=== PATIENT | male | born 1960 | race Caucasian/White ===

== ENCOUNTER 2024-10-17 05:10 | Emergency (ER) | payer OTHER, SELFPAY ==
--- NOTE | ~2024-10-17 | XR_ITS ---
CLINICAL HISTORY: pain swelling s p fall - PT UNABLE TO FAN FINGERS FOR LATERAL VIEW 3 view right hand Comparison: None Findings: Bones intact. No dislocations. There are degenerative changes of the interphalangeal joints in the base of the 1st metacarpal. No erosions. No radiopaque foreign body. The lateral views limited based on positioning. IMPRESSION: 1. No acute findings 2. Mild degenerative changes. This document has been electronically signed by: Niels Wilson MD on 10/17/2024 05:54:24
[2024-10-17 05:15] VITALS: BP 177/105; PULSE 77; RESP 16; TEMP 36.2; O2SAT 95; BMI 32.5
--- NOTE | 2024-10-17 06:28 | ED_ITS ---
HPI - Extremity Problem General Chief complaint: Extremity Injury, Upper Stated complaint: tripped injured right hand Time Seen by Provider: 10/17/24 06:26 Source: patient Mode of arrival: ambulatory Limitations: no limitations History of Present Illness ED Provider: Niraj Spann PA-C HPI Narrative: 64 yo right hand dominant male presents to the ER for evaluation of right hand and wrist pain after he fell yesterday morning. He slipped and fell on an outstretched hand and has had pain in the palm of his hand, radiating down into his wrist and forearm. He reports limited mobility of the hand & fingers due to pain. He denies any numbness or tingling. No open wounds or cuts. He reports the whole hand is slightly swollen compared to his other. MD Complaint: joint swelling and joint pain Onset (ago): day(s) Pain Consistency: constant Location: right and upper extremity Severity scale (1-10): 9 Quality: stabbing and aching Radiation: proximal Relieving factors: nothing Exacerbating factors: range of motion and palpation Associated symptoms: denies other symptoms Related Data Previous Rx's ?Medication ?Instructions ?Recorded ibuprofen 600 mg tablet 600 mg PO Q8H PRN pain #14 tabs 10/17/24 Allergies Allergy/AdvReac Type Severity Reaction Status Date / Time No Known Allergies Allergy Verified 10/17/24 05:17 [No Known Allergies*] Review of Systems Review of Systems: Yes all other systems are reviewed and are negative [facility] Social History Social History Advance Directives: No Advance Directives Information Provided: Yes Do you have a plan to hurt others: No Plan Physical Exam Vital Signs: Vital Signs: Last Vital Signs Temp 97.2 F 10/17/24 05:15 Pulse 77 10/17/24 05:15 Resp 16 10/17/24 05:15 BP 177/105 H 10/17/24 05:15 Pulse Ox 95 10/17/24 05:15 O2 Del Method Room Air 10/17/24 05:15 BMI result Body Mass Index 32.5 Appearance: Alert. Oriented X3. No acute distress. HEENT: normal inspection CVS: Normal heart rate and rhythm. Pulses normal. Respiratory: No respiratory distress. Skin: Skin warm and dry. Normal skin color. Normal skin turgor. No rashes. Extremities: Palmar aspect of the right hand with mild generalized swelling. Limited ability to make a fist, thumb to finger abduction is also limited in all digits. Mild discomfort with passive range of motion of the right wrist. No snuffbox tenderness. 2+ radial pulse. Cap refill less than 3 seconds Neuro: Oriented X 3. No motor deficit. No sensory deficit. Medications Administered Discontinued Medications Generic Name Dose Route Start Last Admin Trade Name Danilo PRN Reason Stop Dose Admin Acetaminophen 975 mg 10/17/24 06:34 10/17/24 06:54 Acetaminophen 325 Mg Tablet PO 10/17/24 06:35 975 mg ONCE ONE Administration Ibuprofen 600 mg 10/17/24 06:34 10/17/24 06:54 Ibuprofen 600 Mg Tablet PO 10/17/24 06:35 600 mg ONCE ONE Administration Medical Decision Making Medical Decision Making [facility] Narrative: 64-year-old right-hand dominant male presents to the ER for evaluation of right hand and wrist pain after he fell yesterday. Reports diffuse pain of the entire hand including all of the digits. No focal tenderness or point tenderness. There is mild swelling of the hand and fingers with limited range of motion. Neurovascularly intact. X-ray of the hand and wrist was performed that does not show any acute fractures. Given his discomfort he was placed in a velcro wrist splint for immobilization. Will refer to orthopedics for further evaluation and treatment. Encouraged to call the office on Saturday to establish an appointment. Will prescribe NSAIDs for inflammation and pain. Patient is stable for discharge home with outpatient follow-up. Differential Diagnosis Differential Diagnoses: The differential diagnosis associated with the presentation includes Hand fracture, wrist fracture, ligamentous injury, cellulitis Independent Interpretation I performed an independent interpretation of an: Plain X-Ray Interpretation: No acute fracture appreciated Radiology Impression Discussion of test interpretation with radiology: I have reviewed the radiologist's reading. Radiologist Impression: 3 view right hand Comparison: None Findings: Bones intact. No dislocations. There are degenerative changes of the interphalangeal joints in the base of the 1st metacarpal. No erosions. No radiopaque foreign body. The lateral views limited based on positioning. IMPRESSION: 1. No acute findings 2. Mild degenerative changes. Prescription Management I considered prescription management with: Pain Medication Critical Care Time Critical Care Time Critical Care Time: No Discharge Plan Discharge Clinical Impression: Sprain and strain of wrist, Contusion of hand Patient Disposition: Home, Self-Care Instructions: Wrist Injury (ED), Contusion in Adults (ED) Additional Instructions: Your x-ray today did not show any broken bones Rest your hand and wrist Recommend wrist splint for immobilization until pain is improved Use ice several times per day for the next 48 hours. Take Motrin and/or Tylenol as needed for pain. Follow up with orthopedic hand specialist. call for an appointment. Prescriptions: New ibuprofen 600 mg tablet 600 mg PO Q8H PRN (Reason: pain) Qty: 14 0RF Referrals: [facility] [Provider Group] Adam Burgos MD [Primary Care Provider] - Print Language: Nepali
[2024-10-17] MEDS: Acetaminophen 325 MG TABLET 975 MG PO (06:54)
[2024-10-17] MEDS: Ibuprofen 600 MG TABLET PO (06:54)
[2024-10-17 07:09] VITALS: BP 168/96; PULSE 77; RESP 16; TEMP 36.2; O2SAT 95
== END 2024-10-17 07:13 | disposition home or self-care (01) ==
PROVIDERS: Emergency Provider Internal Medicine; PCP Hospitalist
DX: S63.501A Unspecified sprain of right wrist, initial encounter (principal); S66.911A Strain of unspecified muscle, fascia and tendon at wrist and hand level, right hand, initial encounter; S60.221A Contusion of right hand, initial encounter; W01.0XXA Fall on same level from slipping, tripping and stumbling without subsequent striking against object, initial encounter; Y93.9 Activity, unspecified; Y92.9 Unspecified place or not applicable; Y99.9 Unspecified external cause status
CPT/HCPCS: 73110; 73130; 99283; 99284

== ENCOUNTER → 2024-10-17 05:38 | Outpatient (BNV) | payer OTHER, SELFPAY | PROVIDERS: PCP Hospitalist; Visit Provider Radiology Vascular & Interventional Radiology | DX: M79.641 Pain in right hand (principal) | CPT/HCPCS: 73130 ==

== ENCOUNTER 2024-12-01 10:05 | Observation (INO) | payer OTHER, SELFPAY ==
[2024-12-01] VITALS (9 sets, daily range): BP systolic 109–179; BP diastolic 70–109; PULSE 62–74; RESP 14–20; TEMP 36.4–37; O2SAT 95–98; BMI 26.0
--- NOTE | ~2024-12-01 | CT_ITS ---
EXAMINATION: CT ABDOMEN AND PELVIS WITH CONTRAST CLINICAL INFORMATION: Bright red blood per rectum. COMPARISON: None available. TECHNIQUE: Multidetector volumetric images were obtained from the superior aspect of the liver through the pubic symphysis following administration 85 mL of Omnipaque 350 intravenous contrast. Sagittal and coronal reformatted images were obtained on the technologist's workstation. Oral contrast: No This CT examination was performed using dose optimization techniques as appropriate, variously including the following: *Automated exposure control *Adjustment of mA and/or kV according to patient size (this includes techniques or standardized protocols for targeted exams where dose is matched to indication/reason for exam; i.e. extremities or head) *Use of iterative reconstruction technique DLP: 528 mGy centimeter. FINDINGS: Limited by patient's motion artifact. LUNG BASES: No gross acute airspace disease. LIVER, GALLBLADDER, AND BILIARY TREE: Liver measures 16 cm. There is a less than 1 cm lobulated well-defined fluid density right hepatic lobe. Main portal veins, hepatic veins and intrahepatic portion of the IVC are patent. No intrahepatic biliary ductal dilatation. No pericholecystic fluid collection or gallbladder wall thickening. Common bile duct measures 4 mm. PANCREAS: No focal mass. No peripancreatic fluid collection. No main pancreatic ductal dilatation. SPLEEN: 10 cm. Multifocal, less than 1 cm hypodensities throughout the spleen. ADRENAL GLANDS: No nodular lesions. KIDNEYS AND URETERS: No renal mass. No hydronephrosis. No gross nephrolithiasis. Exophytic cyst in the anterior midportion/lower pole right kidney. BLADDER: Fluid-filled and prominent/distended. GASTROINTESTINAL TRACT: Multiple punctate metallic structures in the region of the prostate gland. There is perirectal edema pattern. There is blake prostate edema pattern. Abundant stool within the large intestine. No pneumatosis intestinalis. No intestinal obstruction pattern. No peripheral enhancing fluid collection in the peritoneal cavity. Appendix is normal. ABDOMINAL WALL: No gross umbilical hernia. LYMPH NODES: Nonspecific prominent lymph nodes, retroperitoneum. VASCULAR: Calcified plaques throughout the abdominal aorta wall and the origin of the main renal arteries and iliac arteries. Tortuosity of the iliac arteries. The right common iliac artery diameter is 1.4 cm. The left common iliac artery diameter is 1.8 cm. PELVIC VISCERA: Metallic clips in the region of the prostate gland. OSSEOUS STRUCTURES: Multilevel thoracolumbar spondylosis more pronounced at L5-S1. [place] lesions in the right femoral neck. CT/CT abdomen pelvis w IV con IMPRESSION: Concerning the are surgical procedure in the prostate gland with associated perirectal wall edema versus inflammatory processes. Injury to the wall cannot be excluded. Nonspecific multifocal hypodense lesions in the spleen. Statistically matter present hematoma versus hamartoma among other etiologies. Fluid-filled distended bladder. Urinary lower left obstruction, mechanical versus metabolic cannot be excluded. Fleischner guidelines were followed. Electronically signed by: Santos Diaz MD 12/01/2024 02:18 PM EDT
[2024-12-01 10:31] LABS: MANUAL DIFF FLAG NO
[2024-12-01 10:34] LABS: Basophils Percent Auto 0.5 % (0-2); Eosinophils Absolute Auto 0.2 X10*3/uL (0.0-0.4); Eosinophils Percent Auto 3.3 % (0-4); Hematocrit 36.4 % (42.0-52.0); Hemoglobin 13.1 g/dl (14.0-18.0); Imm Gran Abs Auto 0.03 X10*3/uL (0.00-0.03); Imm Gran Pct Auto 0.5 % (0.0-0.4); Lymphocytes Absolute Auto 1.2 X10*3/uL (1.2-4.9); Lymphocytes Percent Auto 19.6 % (20-40); Mean Corpuscular Hemoglobin 31.7 pg (27.0-33.0); Mean Corpuscular Volume 88.1 fL (80.0-98.0); Mean Platelet Volume 9.1 fL (9.4-12.4); Monocytes Absolute Auto 0.4 X10*3/uL (0.1-1.2); Neutrophils Absolute Auto 4.2 x10*3/uL (2.0-8.3); Neutrophils Percent Auto 70.1 % (45-73); Platelet Count 136 X10*3/uL (160-400); Red Blood Count 4.13 X10*6/uL (4.60-5.80); Red Cell Distribution Width 13.3 % (11.0-16.0)
[2024-12-01 10:50] LABS: Alanine Aminotransferase 12 U/L (0-40); Albumin Level 3.9 g/dL (3.5-5.0); Alkaline Phosphatase 59 U/L (39-117); Anion Gap 10 (12-20); Aspartate Amino Transferase 22 U/L (5-37); Bilirubin Total 0.8 mg/dL (0.0-1.0); Blood Urea Nitrogen 13 mg/dL (9-16); Calcium 9.1 mg/dL (8.4-10.2); Carbon Dioxide 29 mmol/L (22-29); Chloride 108 mmol/L (96-108); Creatinine Clr Calc Pharmacy 93.7; Estimated Glomerular Filt Rate > 60; Glucose Random 125 mg/dL (60-115); Sodium 144 mmol/L (135-145); Total Protein 6.4 g/dL (6.5-8.0)
--- NOTE | 2024-12-01 11:56 | ED_ITS ---
HPI - GI Bleed General Chief complaint: GI Bleed Stated complaint: rectal bleeding Time Seen by Provider: 12/01/24 11:27 History of Present Illness HPI Narrative: Patient is a 64-year-old male with a history of prostate cancer. Been noticing bright red blood for the last 4-5 days. Patient claims that he had radiation last year for his prostate cancer now takes for radiation pills at night. There is no fever no chills. There is no chest pain has no abdominal pain there is no diaphoresis. Patient is from home. No recent colonoscopy or endoscopy. No alcohol use. Related Data Previous Rx's ?Medication ?Instructions ?Recorded ibuprofen 600 mg tablet 600 mg PO Q8H PRN pain #14 tabs 10/17/24 Allergies Allergy/AdvReac Type Severity Reaction Status Date / Time No Known Allergies Allergy Verified 12/01/24 10:17 [No Known Allergies*] Review of Systems 2 Review of Systems: Positive bright red blood per rectum PMFSH Past Medical History Attestation statement: The following information was validated with the patient. Social History Social History Advance Directives: No Advance Directives Information Provided: Yes Do you have a plan to hurt others: No Plan Physical Exam 2 Vital Signs: Vital Signs: Last Vital Signs Temp 98.6 F 12/01/24 12:53 Pulse 62 12/01/24 12:53 Resp 14 12/01/24 12:53 BP 177/101 H 12/01/24 12:53 Pulse Ox 97 12/01/24 12:53 O2 Del Method Room Air 12/01/24 12:53 BMI result Body Mass Index 26.0 Appearance: Alert. Oriented X3. No acute distress. Eyes: Pupils equal, round and reactive to light. ENT: Pharynx normal. Neck: Normal inspection. Neck supple. No lymph nodes noted. No crepitus CVS: Normal heart rate and rhythm. Pulses normal. Normal S1 and S2 Respiratory: No respiratory distress. Breath sounds normal. No Wheezing. No rales Abdomen: Soft and nontender. No rigidity. No distention. good BS x4 Skin: Skin warm and dry. Normal skin color. Normal skin turgor. Rectal exam bright red blood per rectum Extremities: No lower extremity edema. Neurovascular intact to all extremities. No Lacerations. No Rash Neuro: Oriented X 3. No motor deficit. No sensory deficit. Moving all extermities. No slurred speech Medications Administered Generic Name Dose Route Start Last Admin Trade Name Danilo PRN Reason Stop Dose Admin Sodium Chloride 1,000 mls @ 999 mls/hr 12/01/24 12:15 12/01/24 12:18 Ns IV 12/01/24 13:15 999 mls/hr .Q1H1M IGNACIO Administration Medical Decision Making Medical Decision Making [facility] Narrative: Positive bright red blood per rectum. Multiple episodes. Generalized malaise. No history of NSAID use. No history of alcohol use. On radiation pills per patient for prostate cancer. Normally goes to [facility]. Hemoglobin is 13 but there is no baseline to compare. Will admit for further monitoring. Blood pressure is okay. Not on blood thinners. Will admit for further monitoring and workup. No recent colonoscopy. Patient's case discussed with the hospitalist service. Will admit for further evaluation and monitoring. No recent NSAIDs. No alcohol. Differential Diagnosis Differential Diagnoses: The differential diagnosis associated with the presentation includes Diverticulosis, av malformation, lower GI bleed Admission/Observation Consideration of admission/observation: Escalation of care including admission/observation considered Consult Healthcare Provider Management of the patient was discussed with: Hospitalist Lab Data [facility] Lab Attestation statement: I reviewed the patient's lab results. 12/01/24 10:27 12/01/24 10:27 Labs: Lab Results 12/01/24 12/01/24 Range/Units 10:27 12:21 WBC 6.0 (4.8-10.8) X10*3/uL RBC 4.13 L (4.60-5.80) X10*6/uL Hgb 13.1 L (14.0-18.0) g/dl Hct 36.4 L (42.0-52.0) % MCV 88.1 (80.0-98.0) fL MCH 31.7 (27.0-33.0) pg MCHC 36.0 (31.0-36.0) g/dl RDW 13.3 (11.0-16.0) % Plt Count 136 L (160-400) X10*3/uL MPV 9.1 L (9.4-12.4) fL Immature Gran % (Auto) 0.5 H (0.0-0.4) % Neut % (Auto) 70.1 (45-73) % Lymph % (Auto) 19.6 L (20-40) % [place] % (Auto) 6.0 (2-11) % Eos % (Auto) 3.3 (0-4) % Baso % (Auto) 0.5 (0-2) % Lymph # (Auto) 1.2 (1.2-4.9) X10*3/uL [place] # (Auto) 0.4 (0.1-1.2) X10*3/uL Eos # (Auto) 0.2 (0.0-0.4) X10*3/uL Baso # (Auto) 0.0 (0.0-0.2) X10*3/uL Abs Immat Gran (auto) 0.03 (0.00-0.03) X10*3/uL Absolute Neuts (auto) 4.2 (2.0-8.3) x10*3/uL Absolute Nucleated RBC 0.000 (0.0-0.012) X10*3/uL Nucleated RBC % (auto) 0.0 (0.0-0.2) /100WBC Sodium 144 (135-145) mmol/L Potassium 3.0 L (3.3-5.1) mmol/L Chloride 108 (96-108) mmol/L Carbon Dioxide 29 (22-29) mmol/L Anion Gap 10 L (12-20) BUN 13 (9-16) mg/dL Creatinine 0.75 (0.5-1.4) mg/dL Estim Creat Clear Calc 93.7 Estimated GFR > 60 Random Glucose 125 H (60-115) mg/dL Calcium 9.1 (8.4-10.2) mg/dL Total Bilirubin 0.8 (0.0-1.0) mg/dL AST 22 (5-37) U/L ALT 12 (0-40) U/L Alkaline Phosphatase 59 (39-117) U/L Total Protein 6.4 L (6.5-8.0) g/dL Albumin 3.9 (3.5-5.0) g/dL Blood Type A Positive Antibody Screen NEGATIVE External Record Review No significant records here at [facility] Chronic Conditions History of prostate cancer Social Determinants Patient?s care significantly limited by Social Determinants of Health including: Problems related to primary support group Discharge Plan Discharge Clinical Impression: Lower gastrointestinal hemorrhage Patient Disposition: Admitted As Inpatient Print Language: Niuean
--- NOTE | 2024-12-01 12:04 | ECG_ITS ---
Test Reason : GIB Blood Pressure : */* mmHG Vent. Rate : 64 BPM Atrial Rate : 64 BPM P-R Int : 184 ms QRS Dur : 92 ms QT Int : 424 ms P-R-T Axes : 62 -17 12 degrees QTcB Int : 437 ms Normal sinus rhythm Nonspecific ST abnormality Abnormal ECG No previous ECGs available Referred By: Pastora Escobedo Electronically Signed By: Don Lemus
[2024-12-01] MEDS: 0.9 % Sodium Chloride 1,000 ML 999 ML IV (12:18)
--- NOTE | 2024-12-01 13:02 | PM.IMHP ---
History of Present Illness Date of Service: 12/01/24 Chief Complaint: rectal bleeding A 64 years old male with PMH of prostate CA post radiation therapy on Abiraterone, HLD who presents to the hospital with multiple episodes of bloody bowel motions with clots. The patient reports having one episode of bloody bowel motion on Saturday. the cabinet was filled with blood and clots. he felt ok otherwise so did not feel the need to get check. Had no recurrent on Sat\Sun but this morning he had large bowel motion with multiple clots and blood only with no stool and while waiting in ED he felt gurgling sensation in his stomach and moved his bowels with blood and clot only motion. No chest pain, palpitations, SOB, nausea, vomiting, diarrhea or urinary symptoms. No fever or chills. Had prev Colonoscopy last year which is not available but overall report it was ok. Hb noted to be 13.5 which is close to his baseline. PLT also low in 1`36 close to baseline. Has mild hypokalemia. Admitted for close observation and GI eval. Review of Systems Review of Systems: No fever, chills or weakness No chest pain, palpitation No shortness of breath or coughing No abdominal pain, nausea or vomiting but bloody bowel motions No urinary symptoms PMFSH Medical History Prostate cancer Social History Advance Directives: No Advance Directives Information Provided: Yes Do you have a plan to hurt others: No Plan Meds Allergies Allergy/AdvReac Type Severity Reaction Status Date / Time No Known Allergies Allergy Verified 12/01/24 10:17 [No Known Allergies*] Active Medications: Current Medications Acetaminophen (Acetaminophen 325 Mg Tablet) 650 mg PO Q6H PRN PRN Reason: Pain, Mild 1-3,fever,headache Calcium Carbonate (Calcium Carbonate 750 Mg Tab.Chew) 750 mg PO Q4H PRN PRN Reason: Heartburn Sodium Chloride (Ns) 1,000 mls @ 999 mls/hr IV .Q1H1M IGNACIO Stop: 12/01/24 13:15 Last Admin: 12/01/24 12:18 Dose: 999 mls/hr Magnesium Hydroxide (Milk Of Magnesia 30 Ml Oral.Susp) 30 ml PO DAILY PRN PRN Reason: Constipation Melatonin (Melatonin 3 Mg Tablet) 6 mg PO BEDTIME PRN PRN Reason: Insomnia Ondansetron HCl (Ondansetron Hcl 4 Mg/2 Ml Vial) 4 mg IVPUSH Q8H PRN PRN Reason: Nausea and Vomiting Sodium Chloride (0.9 % Sodium Chloride Flush 3 Ml Syringe) 3 ml IVFLUSH QSHIFT IGNACIO Physical Exam Vital Signs and Narrative: Vital Signs: Last Vital Signs Temp 98.6 F 12/01/24 12:53 Pulse 62 12/01/24 12:53 Resp 14 12/01/24 12:53 BP 177/101 H 12/01/24 12:53 Pulse Ox 97 12/01/24 12:53 O2 Del Method Room Air 12/01/24 12:53 BMI result Body Mass Index 26.0 Const: Other: Constitutional : Awake, interactive, not in distress Neck : Normal inspection, Supple Cardiovascular : RRR, no JVP, no lower extremity edema Respiratory : good bilateral air entry, no crackles, wheezes or rhonchi Gastrointestinal: soft, lax, Normal bowel sounds, Non tender Skin : Warm, Dry Neurological : Alert & oriented x3, No focal deficit Results Labs 12/01/24 10:27 12/01/24 10:27 Labs: Laboratory Results - last 24 hr 12/01/24 10:27 MCV 88.1 MCH 31.7 MCHC 36.0 RDW 13.3 Plt Count 136 L MPV 9.1 L Immature Gran % (Auto) 0.5 H Neut % (Auto) 70.1 Lymph % (Auto) 19.6 L [place] % (Auto) 6.0 Eos % (Auto) 3.3 Baso % (Auto) 0.5 Lymph # (Auto) 1.2 [place] # (Auto) 0.4 Eos # (Auto) 0.2 Baso # (Auto) 0.0 Abs Immat Gran (auto) 0.03 Absolute Neuts (auto) 4.2 Absolute Nucleated RBC 0.000 Nucleated RBC % (auto) 0.0 Anion Gap 10 L Estim Creat Clear Calc 93.7 Estimated GFR > 60 Random Glucose 125 H Calcium 9.1 Total Bilirubin 0.8 AST 22 ALT 12 Alkaline Phosphatase 59 Total Protein 6.4 L Albumin 3.9 Assessment and Plan (1) Lower gastrointestinal hemorrhage: Status: Acute (2) Acute hypokalemia: Status: Acute Plan A 64 years old male with PMH of prostate CA post radiation therapy on Abiraterone, HLD who presents to the hospital with multiple episodes of bloody bowel motions with clots. Acute BRBPR likely lower GIB, could be diverticular no evidence of acute anemia Pending CT scan monitor H&H GI consult type & screen done, transfuse as needed Acute hypokalemia replacement PO follow BMP DVT PPx SCDs Quality Stroke Does the patient have a stroke diagnosis?: No VTE Prior VTE?: No VTE Risk Level:: Medical - moderate - high VTE Device Contraindication: N/A - Device Ordered VTE Drug Contraindication: Treatment Not Indicated
[2024-12-01] MEDS: iohexoL 350 MG/ML 100 ML INFUS..BTL IV (13:32)
--- NOTE | 2024-12-01 13:41 | P.CNGI_ITS ---
History of Present Illness Data of Consult Service Date: 12/01/24 Primary Care Provider: Stefan Yuan DO HPI Reason for consult: rectla bleeding 64 years old male with PMH of prostate CA post radiation therapy on Abiraterone, HLD who i am seeing for assessment for rectal bleeding He had intermittent episodes of rectal bleeding since last Saturday with clots and bloody stools. He denies chest pain,abdominla pain, palpitations, SOB, nausea, vomiting, diarrhea or urinary symptoms. No fever or chills. Had prev Colonoscopy last year which is not available but apparently was normal. He denies taking nsaids or anti coagulants HE does have hx of XRT for prostate can about 1 year ago, which is in remission. labs: Hb noted to be 13.5 which is close to his baseline. PLT also low in 136 close to baseline, mild hypokalemia. Review of Systems 2 Review of Systems: Constitutional : No Weight loss, No Fever, No Chills ENT/Mouth : No sore throat, No Rhinorrhea Eyes: No Swelling, No Redness Cardiovascular : No Chest Pain, No SOB, No Edema Respiratory : No Cough, No Sputum, No Wheezing Gastrointestinal : see HPI Genitourinary : NO Dysuria, No Urinary Frequency, No Hematuria, No Urgency Musculoskeletal : + joint pain-trigger finger, No Myalgias, No Joint Swelling Skin : No Skin Lesions, No rash Neuro : No Weakness, No Numbness, No Dizziness, No Headache Psych : No Anxiety/Panic, No Depression Heme/Lymph: No Bruising, No Lymphadenopathy Endocrine : No Polyuria, No Polydipsia All other systems reviewed and are negative. [facility] Past Medical History Medical History Prostate cancer Family History Pertinent family history: no FH of cRC Social History Social History Patient Tobacco Use Status: Never used Tobacco Currently Displaying Signs/Symptoms of Drug Intoxication Withdrawal: No Advance Directives: No Advance Directives Information Provided: Yes Do you have a plan to hurt others: No Plan service: No Meds Allergies Allergy/AdvReac Type Severity Reaction Status Date / Time No Known Allergies Allergy Verified 12/01/24 10:17 [No Known Allergies*] Active Medications: Current Medications Acetaminophen (Acetaminophen 325 Mg Tablet) 650 mg PO Q6H PRN PRN Reason: Pain, Mild 1-3,fever,headache Calcium Carbonate (Calcium Carbonate 750 Mg Tab.Chew) 750 mg PO Q4H PRN PRN Reason: Heartburn Magnesium Hydroxide (Milk Of Magnesia 30 Ml Oral.Susp) 30 ml PO DAILY PRN PRN Reason: Constipation Melatonin (Melatonin 3 Mg Tablet) 6 mg PO BEDTIME PRN PRN Reason: Insomnia Ondansetron HCl (Ondansetron Hcl 4 Mg/2 Ml Vial) 4 mg IVPUSH Q8H PRN PRN Reason: Nausea and Vomiting Sodium Chloride (0.9 % Sodium Chloride Flush 3 Ml Syringe) 3 ml IVFLUSH QSHICHI [facility] Home Medications ?Medication ?Instructions ?Recorded ?Confirmed ?Last Taken ?Type abiraterone 250 mg tablet 1,000 mg PO BEDTIME 12/01/24 12/01/24 11/30/24 History lisinopril 10 mg tablet 10 mg PO BEDTIME 12/01/24 12/01/24 11/30/24 History pravastatin 40 mg tablet 40 mg PO BEDTIME 12/01/24 12/01/24 11/30/24 History Physical Exam 2 Vital Signs: Vital Signs: Last Vital Signs Temp 98.6 F 12/01/24 12:53 Pulse 62 12/01/24 12:53 Resp 14 12/01/24 12:53 BP 177/101 H 12/01/24 12:53 Pulse Ox 97 12/01/24 12:53 O2 Del Method Room Air 12/01/24 12:53 BMI result Body Mass Index 26.0 EXAM: GENERAL: The patient is well developed and nontoxic. VITAL SIGNS:see workflow HEENT: Nonicteric sclerae, PERRLA, EOMI. Oropharynx clear. Moist mucous membranes. Conjunctivae appear well perfused. No thyroid mass. CHEST: Chest wall is nontender. HEART: Regular rate and rhythm with ESM all over precordium, 3/6 consistent with LUNGS: Clear to auscultation bilaterally. ABDOMEN: Soft, positive bowel sounds, nontender, no organomegaly.no flank tenderness SKIN: No rash, no excessive bruising, petechiae, or purpura. NEUROLOGIC: Cranial nerves II-XII intact without motor/sensory deficit. Psych: normal affect contracture right hand Results Labs 12/02/24 05:47 12/02/24 05:47 Labs: Short CBC 12/01/24 Range/Units 10:27 WBC 6.0 (4.8-10.8) X10*3/uL Hgb 13.1 L (14.0-18.0) g/dl Hct 36.4 L (42.0-52.0) % Plt Count 136 L (160-400) X10*3/uL BMP 12/01/24 10:27 Sodium 144 Potassium 3.0 L Chloride 108 Carbon Dioxide 29 BUN 13 Creatinine 0.75 Calcium 9.1 Liver Function 12/01/24 Range/Units 10:27 Total Bilirubin 0.8 (0.0-1.0) mg/dL AST 22 (5-37) U/L ALT 12 (0-40) U/L Alkaline Phosphatase 59 (39-117) U/L Albumin 3.9 (3.5-5.0) g/dL Assessment and Plan (1) Lower gastrointestinal hemorrhage: Status: Acute Plan 1/ Lower GI bleed, stable HGb, could be RAVE from prior radiation, hemorrhoidal bleed, less likely mass lesion, ischemic or diverticular bleed PLAN: 1/ colonoscopy tomorrow 2/ monitor HGb as doing--tranfuse if HGB < 8g/dl Procedures Date of Service Date of Service: 12/02/24
[2024-12-01] MEDS: Potassium Chloride ER 20 MEQ TAB.ER.PRT 40 MEQ PO (14:20)
[2024-12-01 15:14] LABS: Hematocrit 36.1 % (42.0-52.0); Hemoglobin 12.9 g/dl (14.0-18.0)
--- NOTE | 2024-12-01 15:15 | PHA.MEDREC ---
Addendum entered by Alejandro Mcgill [facility] 12/01/24 15:22: Med rec reviewed Original Note: Pharmacy Consult ? Medication Reconciliation Pharmacy has completed the medication reconciliation. Spoke to patient to confirm med list.
--- NOTE | 2024-12-01 15:30 | PC.NURSE ---
pt arrived to [facility] from main ed, pt currently a&ox3, denies pain/discomfort, rr equal/non labored, pt ambulatory with steady gait to bathroom.
--- NOTE | 2024-12-01 16:22 | PC.NURSE ---
messaged pharmacy for missing medication
[2024-12-01] MEDS: lisinopriL 10 MG TABLET PO ×2 (17:34→17:48)
[2024-12-01] MEDS: PEG 3350/Na Sulf,Bicarb,Cl/KCL 4,000 ML SOLN.RECON 4000 ML PO (17:47)
[2024-12-01] MEDS: 0.9 % Sodium Chloride Flush 3 ML SYRINGE IVFLUSH (17:49)
--- NOTE | 2024-12-01 17:53 | PC.NURSE ---
BP of 109/70 documented in error, unable to undo this in the EMR.
--- NOTE | 2024-12-01 18:36 | PC.NURSE ---
pt began bowel prep- he is well aware of how to do the prep as he has done it previously. commode put in patients room for convenience/urgency. pt currently denying pain, call carbajal within reach, clear liquids until midnight for po, plan of care ongoing.
[2024-12-02] VITALS (7 sets, daily range): BP systolic 150–180; BP diastolic 84–100; PULSE 62–73; RESP 15–18; TEMP 36.4–37.1; O2SAT 95–97
[2024-12-02] MEDS: 0.9 % Sodium Chloride Flush 3 ML SYRINGE IVFLUSH ×2 (00:16→16:00)
[2024-12-02 06:01] LABS: MANUAL DIFF FLAG NO
[2024-12-02 06:28] LABS: Basophils Percent Auto 0.8 % (0-2); Eosinophils Absolute Auto 0.2 X10*3/uL (0.0-0.4); Eosinophils Percent Auto 3.9 % (0-4); Hematocrit 35.2 % (42.0-52.0); Hemoglobin 12.6 g/dl (14.0-18.0); Imm Gran Abs Auto 0.02 X10*3/uL (0.00-0.03); Imm Gran Pct Auto 0.4 % (0.0-0.4); Lymphocytes Absolute Auto 1.1 X10*3/uL (1.2-4.9); Lymphocytes Percent Auto 23.3 % (20-40); Mean Corpuscular HGB Conc 35.8 g/dl (31.0-36.0); Mean Corpuscular Hemoglobin 31.6 pg (27.0-33.0); Mean Corpuscular Volume 88.2 fL (80.0-98.0); Mean Platelet Volume 9.3 fL (9.4-12.4); Monocytes Absolute Auto 0.3 X10*3/uL (0.1-1.2); Monocytes Percent Auto 6.6 % (2-11); Neutrophils Absolute Auto 3.1 x10*3/uL (2.0-8.3); Platelet Count 155 X10*3/uL (160-400); Red Blood Count 3.99 X10*6/uL (4.60-5.80); Red Cell Distribution Width 13.3 % (11.0-16.0); White Blood Count 4.8 X10*3/uL (4.8-10.8)
[2024-12-02 06:35] LABS: Anion Gap 12 (12-20); Blood Urea Nitrogen 8 mg/dL (9-16); Calcium 8.9 mg/dL (8.4-10.2); Carbon Dioxide 29 mmol/L (22-29); Chloride 108 mmol/L (96-108); Creatinine Clr Calc Pharmacy 106.5; Estimated Glomerular Filt Rate > 60; Glucose Random 87 mg/dL (60-115); Potassium 2.5 mmol/L (3.3-5.1); Sodium 146 mmol/L (135-145)
[2024-12-02] MEDS: Potassium Chloride/H20 10 MEQ/100 ML PIGGYBACK 100 MEQ IV ×4 (06:43→10:13)
[2024-12-02] MEDS: Acetaminophen 325 MG TABLET 650 MG PO (07:13)
[2024-12-02] MEDS: Lactated Ringers 1,000 ML 80 ML IVCONT ×2 (08:00→12:18)
--- NOTE | 2024-12-02 10:22 | MHC.CM.PN ---
Addendum entered by July Santiago 12/02/24 16:15: DP: PT HAS BEEN MEDICALLY CLEARED FOR DC HOME, NO SERVICES. PT HAS CAR IN LOT. Original Note: [facility] DELIVERED PT LIVES WITH S/O, IS FUNCTIONALLY INDEP. AND EMPLOYED F/T. +HCP PCP DR. MEMBRENO DP: HOME, NO SERVICES IS ANTICIPATED. PT HAS CAR IN LOT. CM WILL CONTINUE TO FOLLOW FOR ANY CHANGE TO DC PLAN/NEEDS.
--- NOTE | 2024-12-02 12:45 | P.PNGI_ITS ---
Subjective Subjective Date of Service: 12/02/24 Interval History: no further rectal bleeding no abdominal pain no nausea or vomiting mild downward drift in HGB Critical Care Time (minutes): 0 Physical Exam 2 Vital Signs: Vital Signs: Last Vital Signs Temp 97.9 F 12/02/24 12:14 Pulse 63 12/02/24 12:14 Resp 16 12/02/24 12:14 BP 159/98 H 12/02/24 12:14 Pulse Ox 96 12/02/24 12:14 O2 Del Method Room Air 12/02/24 12:14 BMI result Body Mass Index 26.0 EXAM: GENERAL: The patient is well developed and nontoxic. VITAL SIGNS:see workflow HEENT: Nonicteric sclerae, PERRLA, EOMI. Oropharynx clear. Moist mucous membranes. Conjunctivae appear well perfused. No thyroid mass. CHEST: Chest wall is nontender. HEART: Regular rate and rhythm with ESM LUNGS: Clear to auscultation bilaterally. ABDOMEN: Soft, positive bowel sounds, nontender, no organomegaly.no flank tenderness SKIN: No rash, no excessive bruising, petechiae, or purpura. NEUROLOGIC: Cranial nerves II-XII intact without motor/sensory deficit. Psych: normal affect Objective Data Labs 12/02/24 05:47 12/02/24 05:47 Labs: Laboratory Results - last 24 hr 12/01/24 12/01/24 12/02/24 12:21 14:42 05:47 WBC 4.8 RBC 3.99 L Hgb 12.9 L 12.6 L Hct 36.1 L 35.2 L MCV 88.2 MCH 31.6 MCHC 35.8 RDW 13.3 Plt Count 155 L MPV 9.3 L Immature Gran % (Auto) 0.4 Neut % (Auto) 65.0 Lymph % (Auto) 23.3 Person % (Auto) 6.6 Eos % (Auto) 3.9 Baso % (Auto) 0.8 Lymph # (Auto) 1.1 L Person # (Auto) 0.3 Eos # (Auto) 0.2 Baso # (Auto) 0.0 Abs Immat Gran (auto) 0.02 Absolute Neuts (auto) 3.1 Absolute Nucleated RBC 0.000 Nucleated RBC % (auto) 0.0 Sodium 146 H Potassium 2.5 L* Chloride 108 Carbon Dioxide 29 Anion Gap 12 BUN 8 L Creatinine 0.66 Estim Creat Clear Calc 106.5 Estimated GFR > 60 Random Glucose 87 Calcium 8.9 Blood Type A Positive Antibody Screen NEGATIVE Procedures Date of Service Date of Service: 12/02/24 Progress Note: A&P Assessment and plan (1) Lower gastrointestinal hemorrhage: Status: Acute Plan 1/ GI bleed, possible RAVE PLAN: 1/ colonoscopy today for further assessment Time Spent With Patient Time: Total time managing care of this patient today ____ minutes. Quality Stroke Does the patient have a stroke diagnosis?: No VTE Prior VTE?: No VTE Risk Level:: Medical - moderate - high VTE Device Contraindication: N/A - Device Ordered VTE Drug Contraindication: Treatment Not Indicated
--- NOTE | 2024-12-02 13:31 | P.CONAN_ITS ---
HPI - Anesthesia Eval Consult details Narrative: For colonoscopy - GI bleeding PMFSH Active Problems Active Problems: All Active Problems Acute hypokalemia (Acute) Lower gastrointestinal hemorrhage (Acute) Past Medical History Medical History Prostate cancer Family History Family history of problems with anesthesia: No Surgical History History of Problems with Anesthesia: No Social History Social History Do you presently have visiting nurse or other home services: No Patient Tobacco Use Status: Never used Tobacco Second Hand Smoke Exposure: No Use of substances other than those prescribed or required for medical reasons: No Currently Displaying Signs/Symptoms of Drug Intoxication Withdrawal: No Have you been hit, kicked, punched, or otherwise hurt by someone within the past year? If so, by whom?: No Are you DNR?: No Advance Directives: No Advance Directives Information Provided: Yes Advance Directives on File: No Do you have a plan to hurt others: No Plan Poor oral hygiene: No service: No Meds Allergies Allergy/AdvReac Type Severity Reaction Status Date / Time No Known Allergies Allergy Verified 12/01/24 10:17 [No Known Allergies*] Active Medications: Current Medications Acetaminophen (Acetaminophen 325 Mg Tablet) 650 mg PO Q6H PRN PRN Reason: Pain, Mild 1-3,fever,headache Last Admin: 12/02/24 07:13 Dose: 650 mg Calcium Carbonate (Calcium Carbonate 750 Mg Tab.Chew) 750 mg PO Q4H PRN PRN Reason: Heartburn Lactated Ringer's (Lr) 1,000 mls @ 80 mls/hr IVCONT .[id number] IGNACIO Last Infusion: 12/02/24 12:55 Dose: 0 mls/hr Lactated Ringer's (Lr) 1,000 mls @ 80 mls/hr IVCONT .[id number] IGNACIO Last Admin: 12/02/24 12:18 Dose: 80 mls/hr Lisinopril (Lisinopril 10 Mg Tablet) 10 mg PO BEDTIME IGNACIO; Protocol Last Admin: 12/01/24 17:48 Dose: 10 mg Magnesium Hydroxide (Milk Of Magnesia 30 Ml Oral.Susp) 30 ml PO DAILY PRN PRN Reason: Constipation Melatonin (Melatonin 3 Mg Tablet) 6 mg PO BEDTIME PRN PRN Reason: Insomnia Ondansetron HCl (Ondansetron Hcl 4 Mg/2 Ml Vial) 4 mg IVPUSH Q8H PRN PRN Reason: Nausea and Vomiting Potassium Chloride (Potassium Chloride Er 20 Meq Tab.Er.Prt) 40 meq PO Q2H [facility] Stop: 12/02/24 14:16 Sodium Chloride (0.9 % Sodium Chloride Flush 3 Ml Syringe) 3 ml IVFLUSH QSHIFT [facility] Last Admin: 12/02/24 07:14 Dose: Not Given Home Medications ?Medication ?Instructions ?Recorded ?Confirmed ?Last Taken ?Type abiraterone 250 mg tablet 1,000 mg PO BEDTIME 12/01/24 12/01/24 11/30/24 History lisinopril 10 mg tablet 10 mg PO BEDTIME 12/01/24 12/01/24 11/30/24 History pravastatin 40 mg tablet 40 mg PO BEDTIME 12/01/24 12/01/24 11/30/24 History Exam Height,Weight and Vital Signs: Height 5 ft 8 in Weight 77.6 kg Last Vital Signs Temp 97.9 F 12/02/24 12:14 Pulse 63 12/02/24 12:14 Resp 16 12/02/24 12:14 BP 159/98 H 12/02/24 12:14 Pulse Ox 96 12/02/24 12:14 O2 Del Method Room Air 12/02/24 12:14 Pertinent Lab Results Pertinent Lab Results: Laboratory Tests 12/01/24 12/01/24 12/01/24 10:27 12:21 14:42 WBC 6.0 RBC 4.13 L Hgb 13.1 L 12.9 L Hct 36.4 L 36.1 L MCV 88.1 MCH 31.7 MCHC 36.0 RDW 13.3 Plt Count 136 L MPV 9.1 L Immature Gran % (Auto) 0.5 H Neut % (Auto) 70.1 Lymph % (Auto) 19.6 L [place] % (Auto) 6.0 Eos % (Auto) 3.3 Baso % (Auto) 0.5 Lymph # (Auto) 1.2 [place] # (Auto) 0.4 Eos # (Auto) 0.2 Baso # (Auto) 0.0 Abs Immat Gran (auto) 0.03 Absolute Neuts (auto) 4.2 Absolute Nucleated RBC 0.000 Nucleated RBC % (auto) 0.0 Sodium 144 Potassium 3.0 L Chloride 108 Carbon Dioxide 29 Anion Gap 10 L BUN 13 Creatinine 0.75 Estim Creat Clear Calc 93.7 Estimated GFR > 60 Random Glucose 125 H Calcium 9.1 Total Bilirubin 0.8 AST 22 ALT 12 Alkaline Phosphatase 59 Total Protein 6.4 L Albumin 3.9 Blood Type A Positive Antibody Screen NEGATIVE 12/02/24 05:47 WBC 4.8 RBC 3.99 L Hgb 12.6 L Hct 35.2 L MCV 88.2 MCH 31.6 MCHC 35.8 RDW 13.3 Plt Count 155 L MPV 9.3 L Immature Gran % (Auto) 0.4 Neut % (Auto) 65.0 Lymph % (Auto) 23.3 [place] % (Auto) 6.6 Eos % (Auto) 3.9 Baso % (Auto) 0.8 Lymph # (Auto) 1.1 L [place] # (Auto) 0.3 Eos # (Auto) 0.2 Baso # (Auto) 0.0 Abs Immat Gran (auto) 0.02 Absolute Neuts (auto) 3.1 Absolute Nucleated RBC 0.000 Nucleated RBC % (auto) 0.0 Sodium 146 H Potassium 2.5 L* Chloride 108 Carbon Dioxide 29 Anion Gap 12 BUN 8 L Creatinine 0.66 Estim Creat Clear Calc 106.5 Estimated GFR > 60 Random Glucose 87 Calcium 8.9 Total Bilirubin AST ALT Alkaline Phosphatase Total Protein Albumin Blood Type Antibody Screen Airway Mallampati Class: II TM Dist: >3cm Neck ROM: Full Loose/Missing/Broken Teeth: Yes and Lower Heart: ok Lungs: ok Assessment and Plan Assessment Anesthesia Assessment: Anesthesia Plan Discussed and Chart Reviewed Final Anesthetic Review Family History of Problems with Anesthesia: No History of Problems with Anesthesia: No NPO: Yes ASA Class: II Final Preanesthetic Review: No Changes in Pt Med Stat, Meds/Allgs Chart Reviewed, Consent Obtained/Reviewed and Anes Risks/Benef Reviewed Patient Risk: Low Procedure Risk: Low Anesthetic Plan Anesthetic Plan: MAC: and Agree w/ Assess. and Plan Disposition: Standard PACU
--- NOTE | 2024-12-02 13:35 | MHC.SHP ---
Pre-Procedural Eval Section A - 24 Hr Update-Section A only Date of Service: 12/02/24 The patient is an INPATIENT: Yes The patient has been examined within 24 hours of the surgical procedure. The History & Physical has been completed within 30 days and I have reviewed it.: Yes Section B - Complete if H&P > 30 days Chief Complaint: BRBPR Allergies: Allergies Allergy/AdvReac Type Severity Reaction Status Date / Time No Known Allergies Allergy Verified 12/01/24 10:17 [No Known Allergies*] Plan I have reviewed the history and physical and performed a pertinent physical examination on my patient. No changes have occurred unless specified. Time Spent With Patient Time: Total time managing care of this patient today ____ minutes.
--- NOTE | 2024-12-02 13:59 | HO.OPN-COLON ---
Colonoscopy Operative Note Operative Note Date of Service: 12/02/24 Narrative: Operative Information Procedure Description: Colonoscopy Indication: rectal bleeding Anesthesia: MAC COLONOSCOPY Instrument: Olympus variable stiffness pediatric scope 190L Colonoscopy Monitoring: Vital signs and clinical assessment, continuous EKG monitoring, Pulse oximetry, Carbon Dioxide monitoring and blood pressure monitoring were done throughout the procedure. Colon withdrawal time was 14 minutes. Procedure: The patient was placed in the left lateral decubitis position and pre-procedure medications were administered. After a digital rectal examination of the ano-rectum, the video colonoscope was inserted into the rectum and advanced through the colon to the cecum/TI. The colonoscope was slowly withdrawn in a retrograde panoramic fashion and the colon mucosa was carefully examined including a retroflexed view of the rectum. Findings and interventions are described below. Procedure Difficulty: easy Findings: Terminal Ileum-normal Cecum:normal Ascending Colon: normal Transverse Colon -normal Descending Colon:normal Sigmoid Colon: moderate diverticulosis Rectum: Retroflexion not doen due to small rectal vault, internal hemorrhoids seen. friable small vessels noted in distal rectum, with oozing. APC was applied and then hemospray. Anorectum - normal Intervention: APC and hemospray Colon preparation: [place] Bowel Preparation Scale Right colon; 2 Transverse colon: 2 Left colon; 2 (0 = Unprepared colon segment with mucosa not seen due to solid stool that cannot be cleared. 1 = Portion of mucosa of the colon segment seen, but other areas of the colon segment not well seen due to staining, residual stool and/or opaque liquid. 2 = Minor amount of residual staining, small fragments of stool and/or opaque liquid, but mucosa of colon segment seen well. 3 = Entire mucosa of colon segment seen well with no residual staining, small fragments of stool or opaque liquid) Impression and Post Procedure Diagnosis: diverticulosis internal hemorrhoids radiation associated vascular ectasia, RAVE Plan: High fiber diet leaflet Avoid straining at stool, epsom salts and sitz bath, anusol supps or cream 4 weeks of mesalamine suppositories at night Above findings were reviewed with the patient and relevant handouts were provided if indicated.
[2024-12-02] MEDS: Potassium Chloride ER 20 MEQ TAB.ER.PRT 40 MEQ PO ×2 (14:39→15:59)
[2024-12-02] MEDS: amLODIPine Besylate 5 MG TABLET PO (15:12)
[2024-12-02 15:13] LABS: Anion Gap 12 (12-20); Blood Urea Nitrogen 8 mg/dL (9-16); Calcium 9.3 mg/dL (8.4-10.2); Carbon Dioxide 30 mmol/L (22-29); Chloride 106 mmol/L (96-108); Creatinine Clr Calc Pharmacy 104.9; Estimated Glomerular Filt Rate > 60; Glucose Random 107 mg/dL (60-115); Potassium 3.1 mmol/L (3.3-5.1); Sodium 145 mmol/L (135-145)
--- NOTE | 2024-12-02 15:48 | PM.DS ---
DS: Providers Provider Date of Service: 12/02/24 Date of admission: 12/01/24 12:54 Date of discharge: 12/02/24 Primary care physician: Stefan Yuan DO Consults: 12/01/24 12:54 Consult to Gastroenterology Routine Consulting Provider: Tayler Alejo Reason for consultation: recurrent rectal bleeding DS: Diagnosis Discharge Diagnosis (1) Lower gastrointestinal hemorrhage: Status: Acute (2) Acute hypokalemia: Status: Acute (3) Uncontrolled hypertension: Status: Acute DS: Summary Hospital Course Hospital Course: Admission note HPI A 64 years old male with PMH of prostate CA post radiation therapy on Abiraterone, HLD who presents to the hospital with multiple episodes of bloody bowel motions with clots. The patient reports having one episode of bloody bowel motion on Saturday. the cabinet was filled with blood and clots. he felt ok otherwise so did not feel the need to get check. Had no recurrent on Sat\Sun but this morning he had large bowel motion with multiple clots and blood only with no stool and while waiting in ED he felt gurgling sensation in his stomach and moved his bowels with blood and clot only motion. No chest pain, palpitations, SOB, nausea, vomiting, diarrhea or urinary symptoms. No fever or chills. Had prev Colonoscopy last year which is not available but overall report it was ok. Hb noted to be 13.5 which is close to his baseline. PLT also low in 1`36 close to baseline. Has mild hypokalemia. Admitted for close observation and GI eval. Hospital course The patient was admitted for evaluation of acute BRBPR. likely lower GIB from radiation proctatis as no evidence of acute anemia and negative CT scan. Evaluated by GI consult who did a colonoscopy showing evidence of radiation proctatis recommending Meselamin suppositories at night. To follow with GI as needed as outpatient. for Acute hypokalemia. K dropped to 2.6 requirig PO Potassium supplement to correct it prior to intervention. K improved to 3.1. given another dose of 40 Meq of potassium prior to discharge. Sodium level noted to be little elevated at 146 which corrected on repeat. He was able to tolerate diet post colonoscopy. Discharge plan Stay well hydrated MEselamine suppository bedtime Start Amlodipine for better blood pressure control Increase Lisinopril to 20 mg bedtime Follow with Dr Alejo from GI as outpatient as needed Time Attestation Discharge Coordination Time (in mins): 36 Quality: Safe Use of Opioids Does Pt have an Active Cancer Diagnosis on the Problem List?: No Quality: Stroke Does the patient have a stroke diagnosis?: No Physical Exam Vital Signs: Vital Signs: Last Vital Signs Temp 98.0 F 12/02/24 14:41 Pulse 73 12/02/24 14:41 Resp 18 12/02/24 14:41 BP 180/100 H 12/02/24 14:41 Pulse Ox 97 12/02/24 14:41 O2 Del Method Room Air 12/02/24 14:41 BMI result Body Mass Index 26.0 Const: Other: Constitutional : Awake, interactive, not in distress Neck : Normal inspection, Supple Cardiovascular : RRR, no JVP, no lower extremity edema Respiratory : good bilateral air entry, no crackles, wheezes or rhonchi Gastrointestinal: soft, lax, Normal bowel sounds, Non tender Skin : Warm, Dry Neurological : Alert & oriented x3, No focal deficit DS: Data Data Completed and Pending Labs on day of discharge: Laboratory Results - last 24 hr 12/02/24 12/02/24 05:47 14:55 WBC 4.8 RBC 3.99 L Hgb 12.6 L Hct 35.2 L MCV 88.2 MCH 31.6 MCHC 35.8 RDW 13.3 Plt Count 155 L MPV 9.3 L Immature Gran % (Auto) 0.4 Neut % (Auto) 65.0 Lymph % (Auto) 23.3 [place] % (Auto) 6.6 Eos % (Auto) 3.9 Baso % (Auto) 0.8 Lymph # (Auto) 1.1 L [place] # (Auto) 0.3 Eos # (Auto) 0.2 Baso # (Auto) 0.0 Abs Immat Gran (auto) 0.02 Absolute Neuts (auto) 3.1 Absolute Nucleated RBC 0.000 Nucleated RBC % (auto) 0.0 Sodium 146 H 145 Potassium 2.5 L* 3.1 L D Chloride 108 106 Carbon Dioxide 29 30 H Anion Gap 12 12 BUN 8 L 8 L Creatinine 0.66 0.67 Estim Creat Clear Calc 106.5 104.9 Estimated GFR > 60 > 60 Random Glucose 87 [address] Calcium [address] scan - abdomen: Radiologist's impression: ITS Impressions Abdomen/Pelvis CT 12/01/24 12:28 IMPRESSION: Concerning the are surgical procedure in the prostate gland with associated perirectal wall edema versus inflammatory processes. Injury to the wall cannot be excluded. Nonspecific multifocal hypodense lesions in the spleen. Statistically matter present hematoma versus hamartoma among other etiologies. Fluid-filled distended bladder. Urinary lower left obstruction, mechanical versus metabolic cannot be excluded. Fleischner guidelines were followed. Electronically signed by: Santos Diaz MD 12/01/2024 02:18 PM EDT Discharge Plan Discharge Anticipated Discharge Date/Time: 12/02/24 14:53 Patient Disposition: Home, Self-Care Discharge Diagnosis: Radiation proctitis Elevated blood pressure Referrals: Stefan Yuan DO [Primary Care Provider] - 1 Week Discharge Medications: New amlodipine 5 mg Tablet 5 mg PO DAILY Qty: 90 0RF Protocol: Hold for SBP< HOLD for SBP < : 90 mesalamine 1,000 mg suppository 1 g AK BEDTIME 28 Days Qty: 30 1RF Continued pravastatin 40 mg tablet 40 mg PO BEDTIME abiraterone 250 mg tablet 1,000 mg PO BEDTIME Changed lisinopril 10 mg tablet 20 mg PO BEDTIME Qty: 60 2RF Discharge Orders: Discharge Order (Routine); Ordered 12/02/24 Ordered By: Brandon Bonds Diet: Advance to usual diet Activity on Discharge: As tolerated Stand Alone Forms: Patient Portal Discharge page Print Language: Chinese Care Plan Goals: Stay well hydrated MEselamine suppository bedtime Start Amlodipine for better blood pressure control Increase Lisinopril to 20 mg bedtime Follow with Dr Alejo from GI as outpatient as needed Health Concerns: Bleeding per rectum Uncontrolled hypertension Plan of Treatment: Meselamine Amlodipine Assessment: as above Discharge Date/Time: 12/02/24 16:44
== END 2024-12-02 16:44 | disposition home or self-care (01) ==
LOC: HO.ED 12:09 → HO.EDOVER 13:31 → HO.S3 19:07
PROVIDERS: Internal Medicine Gastroenterology; Admitting Provider Student in an Organized Health Care Education/Training Program; Emergency Provider Emergency Medicine Emergency Medical Services; PCP Family Medicine; Visit Provider Student in an Organized Health Care Education/Training Program
PROC: 0DJD8ZZ Inspection of Lower Intestinal Tract, Via Natural or Artificial Opening Endoscopic (ICD-10-PCS; CPT 45378; principal; 2024-12-02 14:20)
DX: K62.7 Radiation proctitis (principal); C61 Malignant neoplasm of prostate; E87.6 Hypokalemia; I10 Essential (primary) hypertension; K57.30 Diverticulosis of large intestine without perforation or abscess without bleeding; K64.8 Other hemorrhoids; Z79.899 Other long term (current) drug therapy; Z92.3 Personal history of irradiation
CPT/HCPCS: 45378; 36415; 74177; 80048; 80053; 85014; 85018; 85025; 86850; 86900; 86901; 93005; 96361; 96365; 96366; 99221; 99285; C1889; J2003; J2704; J3480; J7120; Q9967

== ENCOUNTER → 2024-12-01 11:33 | Outpatient (BNV) | payer OTHER, SELFPAY | PROVIDERS: Emergency Provider Emergency Medicine Emergency Medical Services; PCP Family Medicine; Visit Provider Student in an Organized Health Care Education/Training Program | DX: K92.2 Gastrointestinal hemorrhage, unspecified (principal); E87.6 Hypokalemia | CPT/HCPCS: 99223 ==

== ENCOUNTER → 2024-12-01 12:04 | Outpatient (BNV) | payer OTHER, SELFPAY | PROVIDERS: Admitting Provider Student in an Organized Health Care Education/Training Program; Emergency Provider Emergency Medicine Emergency Medical Services; PCP Family Medicine; Visit Provider Internal Medicine Cardiovascular Disease | DX: R94.31 Abnormal electrocardiogram [ECG] [EKG] (principal); K92.2 Gastrointestinal hemorrhage, unspecified | CPT/HCPCS: 93010 ==

== ENCOUNTER → 2024-12-01 12:28 | Outpatient (BNV) | payer OTHER, SELFPAY | PROVIDERS: Admitting Provider Student in an Organized Health Care Education/Training Program; Emergency Provider Emergency Medicine Emergency Medical Services; PCP Family Medicine; Visit Provider Radiology Diagnostic Radiology | DX: D73.89 Other diseases of spleen (principal); N32.89 Other specified disorders of bladder | CPT/HCPCS: 74177 ==

== ENCOUNTER → 2024-12-01 12:54 | Outpatient (BNV) | payer OTHER, SELFPAY | PROVIDERS: Admitting Provider Student in an Organized Health Care Education/Training Program; Emergency Provider Emergency Medicine Emergency Medical Services; PCP Family Medicine; Visit Provider Internal Medicine Gastroenterology | DX: K62.5 Hemorrhage of anus and rectum (principal); K57.30 Diverticulosis of large intestine without perforation or abscess without bleeding; K64.9 Unspecified hemorrhoids; K62.7 Radiation proctitis | CPT/HCPCS: 45334; 45378; 99223; 99232 ==

== ENCOUNTER 2024-12-29 10:22 | Observation (INO) | payer OTHER, SELFPAY ==
--- NOTE | ~2024-12-29 | US_ITS ---
EXAMINATION: US TRIPLEX UPPER EXTREMITY, LEFT CLINICAL INFORMATION: Left hand swelling, rule out DVT. COMPARISON: None available. TECHNIQUE: Color-flow triplex imaging with spectral analysis and compression Doppler was performed on the left upper extremity. FINDINGS: The left internal jugular, subclavian, and axillary veins are patent and free of thrombus. The imaged segment of the left brachiocephalic vein is patent. Spectral doppler waveforms are normal. The brachial, basilic, cephalic, radial, and ulnar veins are patent and compressible. US/US venous duplex UE LT IMPRESSION: No evidence of deep venous thrombosis involving the left upper extremity. Electronically signed by: Familia Knight MD 12/29/2024 01:46 PM EDT
--- NOTE | ~2024-12-29 | XR_ITS ---
EXAMINATION: XR HAND 3 OR MORE VIEWS LEFT HISTORY: swelling/limited ROM COMPARISON: There are no prior studies available for comparison. FINDINGS: Three views of the left hand are submitted. Osseous mineralization is normal. There is no fracture or dislocation. There are degenerative changes involving the PIP joint of the middle finger, the MCP joint of the index finger, and the MCP joint of the thumb with joint space narrowing. There is soft tissue swelling at the PIP joint of the middle finger. XR/XR hand LT min 3V IMPRESSION: Degenerative changes of the left hand as described. Soft tissue swelling at the PIP joint of the middle finger. Electronically signed by: Stefan Waddell MD 12/29/2024 10:59 AM EDT
[2024-12-29 10:33] VITALS: BP 118/73; PULSE 93; RESP 18; TEMP 36.6; O2SAT 96; BMI 24.5
[2024-12-29 12:00] VITALS: BP 188/90; PULSE 115; RESP 16; TEMP 36.8; O2SAT 99
--- OUTSIDE RECORDS SUMMARY | 2024-12-29 12:24 | XMS_ITS | Continuity of Care Document ---
Author Organization [facility] Address [address] [place] [address] [address] [place] [address]- Care Team Providers Care Brazer Resistance Name Role Phone Juliana Harvey MD Primary Care Physician [phone] Encounter [facility] [place] Date(s): 12/16/24 - 12/23/24 [facility] [address] [place] [id number] Attending Physician: Saul Cuevas MD Referring Physician: Juliana Harvey MD Encounter Type: Office Visit Allergies, Adverse Reactions, Alerts No Known Allergies Immunizations Given and Recorded Vaccine Date Status Refusal Reason pneumococcal 20-valent conjugate vaccine 1 03/15/23 Given tetanus-diphtheria toxoids (Td) 2 02/27/21 Given SARS-CoV-2 (COVID-19) Ad26 vaccine 11/08/20 Record ed Influenza Virus Vaccine (oldterm) 3 06/25/13 Given Tet/diphth/pertussis, acel (oldterm) 12/20/10 Give n 1Result Comment: [id number] 2Result Comment: [id number] 3Admin Note: refused Problem List Condition Confirmation Course Effective Dates Status H ealth Status Informant Alcohol problem drinking Confirmed 10/02/11 Active BPH - Benign prostatic hypertrophy Confirmed 10/02/11 Active Chest pain Confirmed Active Dupuytren's contracture of right hand Confirmed Active ARORA (dyspnea on exertion) Confirmed Active Essential hypertension Confirmed Active Hand pain Confirmed Active Hypokalemia Confirmed Active Prostate cancer Confirmed Active Mitral regurgitation , mild to moderate Confirmed Active Mixed hyperlipidemia Confirmed Active Osteopenia Confirmed Active Physical exam Confirmed Active Trigger finger of right hand Confirmed Active Tubular adenoma colon x 2 Confirmed Active Vital Signs Most recent to oldest [Reference Range]: 1 Height 173 cm (12/16/24 10:16 AM) Weight 75 kg (12/16/24 10:16 AM) Body Mass Index [18.5-24.99 kg/m2] 25.06 kg/m2 *H* (12/16/24 10:16 AM) Social History Social History Type Response Smoking Status Former smoker, quit more than 30 days ago; Tobacco use times per day: quit 2013 1/2ppd for 3 yrs; Total pack years: 1.5; entered on: 04/07/24 Sex Sex Representation Male (finding) Patient Care team information Care Team Personnel Name: Juliana Harvey MD Position: [facility] Physician - Primary Care Member Role: PCP Address: [address] [place] [address] Telecom: Care Team Related Persons Name: ZACARIAS BYRNE Name: LAMONTE EASON Insurance Providers Guarantor name: CINDY EASON Health Plan Information #: 1 Payer: [employer] POS Member Number: [id number] Policy Number: NA Group Number: [id number] Health Plan Information #: 2 Payer: [employer] HMO POS Member Number: [id number] Policy Number: NA Group Number: [id number]
--- NOTE | 2024-12-29 12:55 | ED_ITS ---
HPI - Extremity Problem General Chief complaint: Extremity Injury, Upper Stated complaint: L hand swelling, no injury Time Seen by Provider: 12/29/24 11:48 Source: patient Mode of arrival: ambulatory Limitations: no limitations History of Present Illness ED Provider: Valdo Lisa HPI Narrative: 64 yold male with pmh of prostate Cancer on radiation presents to the ED left hand swelling since saturday. patient denies any recent trauma, fever, chills, nausea, vomitting, human bite, or animal bite. patient states difficulty moving hand/fingers/ Related Data Home Medications ?Medication ?Instructions ?Recorded ?Confirmed abiraterone 250 mg tablet 1,000 mg PO BEDTIME 12/01/24 12/01/24 pravastatin 40 mg tablet 40 mg PO BEDTIME 12/01/24 12/01/24 Previous Rx's ?Medication ?Instructions ?Recorded amlodipine 5 mg tablet 5 mg PO DAILY #90 tabs 12/02/24 lisinopril 10 mg tablet 20 mg (2 x 10 mg) PO BEDTIME #60 12/02/24 tabs mesalamine 1,000 mg rectal 1 g W[place] BEDTIME 4 weeks #30 ea 12/02/24 suppository Allergies Allergy/AdvReac Type Severity Reaction Status Date / Time No Known Allergies Allergy Verified 12/29/24 10:35 [No Known Allergies*] Review of Systems 2 Review of Systems: left hand swelling Yes all other systems are reviewed and are negative PMFSH Past Medical History Medical History Prostate cancer Social History Social History Do you presently have visiting nurse or other home services: No Patient Tobacco Use Status: Never used Tobacco Smoked in Last 30 Days: No Second Hand Smoke Exposure: No Use of substances other than those prescribed or required for medical reasons: No Advance Directives: No Advance Directives Information Provided: Yes service: No Physical Exam 2 Vital Signs: Vital Signs: Last Vital Signs Temp 98.6 F 12/29/24 16:08 Pulse 69 12/29/24 16:08 Resp 20 12/29/24 16:08 BP 139/78 12/29/24 16:08 Pulse Ox 97 12/29/24 16:08 O2 Del Method Room Air 12/29/24 16:08 BMI result Body Mass Index 24.5 Const: General: cooperative, healthy appearing, comfortable, no acute distress, well developed, alert, awake and Physically active O rientation/consciousness: patient oriented x3 HEENT: Head: Yes normal to inspection, Yes No palpable skull fracture present, Yes normocephalic and Yes atraumatic Eyes: General: appearance normal, both eyes and all related structures Neck: Neck: Yes normal visual inspection, Yes full ROM, Yes no lymphadenopathy, Yes no meningeal signs, Yes trachea midline, Yes supple, No anterior neck swelling and No tender Chest: Chest palpation & inspection: normal inspection of the chest and normal palpation of entire chest wall Resp: Effort & Inspection: normal respiratory effort and able to speak in complete sentences Auscultation: clear to auscultation bilaterally Cardio: Jugular venous distension: no JVD Heart sounds: S1 normal heart sound present and S2 normal heart sound present GI: Inspection: Yes normal to inspection Palpation (GI): Soft to palpation, not firm, nontender, no guarding and not rigid : General: Yes no CVA tenderness Back/Spine/Pelvis: Back: no CVA tenderness and No back tenderness Skin: General skin exam: no rashes or lesions noted, elasticity normal and turgor normal Neuro: General: patient oriented x3, gait normal, tone normal, moves all extremities, Normal light touch and pain sensation, no meningeal signs, no focal motor deficits, CN's II-XI intact bilaterally and normal sensation to monofilament Extrem: Other: Left hand profusely swollen positive for some erythema on dorsal aspect of hand. Palm also swollen. Unable to move fingers. Vascular neuro exam intact Psych: Appearance: grossly normal, well kempt and not disheveled Medications Administered Generic Name Dose Route Start Last Admin Trade Name Freq PRN Reason Stop Dose Admin Enoxaparin Sodium 40 mg 12/29/24 17:00 12/29/24 17:41 Enoxaparin Sodium 40 Mg/0.4 Ml Syringe SUBCUT Not Given Q24H IGNACIO Potassium Chloride 10 meq in 100 mls @ 100 mls/hr 12/29/24 16:45 12/29/24 17:41 Potassium Chloride/H20 IV 12/29/24 18:44 100 mls/hr Q1H IGNACIO Administration Ibuprofen 400 mg 12/29/24 17:00 12/29/24 17:40 Ibuprofen 400 Mg Tablet PO 400 mg TIDWM IGNACIO Administration Potassium Chloride 40 meq 12/29/24 16:45 12/29/24 17:41 Potassium Chloride Packet 20 Meq Packet PO 12/29/24 18:46 40 meq Q2H IGNACIO Administration Discontinued Medications Generic Name Dose Route Start Last Admin Trade Name Freq PRN Reason Stop Dose Admin Potassium Chloride 10 meq in 100 mls @ 100 mls/hr 12/29/24 13:30 12/29/24 16:03 Potassium Chloride/H20 IV 12/29/24 15:29 Infused Q1H IGNACIO Infusion Ketorolac Tromethamine 30 mg 12/29/24 12:30 12/29/24 12:56 Ketorolac Tromethamine 30 Mg/Ml Vial IVPUSH 12/29/24 12:31 30 mg ONCE ONE Administration Methylprednisolone Sodium Succinate 125 mg 12/29/24 12:30 12/29/24 12:56 Methylprednisolone Sod Succ 125 Mg Vial IVPUSH 12/29/24 12:31 125 mg ONCE ONE Administration Potassium Chloride 40 meq 12/29/24 13:27 12/29/24 13:41 Potassium Chloride Packet 20 Meq Packet PO 12/29/24 13:28 40 meq ONCE ONE Administration Medical Decision Making Medical Decision Making MDM Narrative: 64-year-old male history of prostate cancer on radiation presents to ED for left hand swelling slight redness since Saturday without any trauma. Pain on movement of fingers. Patient denies any chest pain or shortness of breath. Initial x-ray shows arthritis degenerative arthritis. Due to extreme swelling we will give Toradol and steroids. We will also sent for ultrasound lactic ESR CRP. 6:00pm: Patient had hypokalemia of 2.3 and was given IV potassium and oral. Repeat potassium only 2.9. Case was discussed with hospitalist for admission for hypokalemia and also for left hand swelling which could be due to arthritis versus cellulitis. Case discussed with Dr. Bonds who will admit patient and observe overnight to make sure this is not cellulitic or tenosynovitits. Presently no antibiotics indicated. Lactic negative. ESR CRP elevated hospitalist made aware of those results.. Patient is agreeable for admission. Differential Diagnosis Differential Diagnoses: The differential diagnosis associated with the presentation includes (Cellulitis, tenosynovitis, arthritis, hypokalemia) Admission/Observation Consideration of admission/observation: Escalation of care including admission/observation considered Lab Data MDM Lab Attestation statement: I reviewed the patient's lab results. 12/29/24 12:54 12/29/24 16:12 Labs: Lab Results 12/29/24 12/29/24 12/29/24 Range/Units 12:54 13:02 16:12 WBC 8.3 (4.8-10.8) X10*3/uL RBC 4.12 L (4.60-5.80) X10*6/uL Hgb 13.1 L (14.0-18.0) g/dl Hct 35.4 L (42.0-52.0) % MCV 85.9 (80.0-98.0) fL MCH 31.8 (27.0-33.0) pg MCHC 37.0 H (31.0-36.0) g/dl RDW 13.9 (11.0-16.0) % Plt Count 150 L (160-400) X10*3/uL MPV 9.1 L (9.4-12.4) fL Immature Gran % (Auto) 0.4 (0.0-0.4) % Neut % (Auto) 75.0 H (45-73) % Lymph % (Auto) 16.7 L (20-40) % [place] % (Auto) 6.5 (2-11) % Eos % (Auto) 1.0 (0-4) % Baso % (Auto) 0.4 (0-2) % Lymph # (Auto) 1.4 (1.2-4.9) X10*3/uL [place] # (Auto) 0.5 (0.1-1.2) X10*3/uL Eos # (Auto) 0.1 (0.0-0.4) X10*3/uL Baso # (Auto) 0.0 (0.0-0.2) X10*3/uL Abs Immat Gran (auto) 0.03 (0.00-0.03) X10*3/uL Absolute Neuts (auto) 6.2 (2.0-8.3) x10*3/uL Absolute Nucleated RBC 0.000 (0.0-0.012) X10*3/uL Nucleated RBC % (auto) 0.0 (0.0-0.2) /100WBC ESR 25 H (0-15) MM/HR PT 13.3 H (10.9-12.4) SEC INR 1.2 H (0.9-1.1) APTT 36.6 (26.0-36.8) SEC Sodium 143 (135-145) mmol/L Potassium 2.3 L* D 2.9 L* D (3.3-5.1) mmol/L Chloride 103 (96-108) mmol/L Carbon Dioxide 31 H (22-29) mmol/L Anion Gap 11 L (12-20) BUN 14 (9-16) mg/dL Creatinine 0.96 (0.5-1.4) mg/dL Estim Creat Clear Calc 75.6 Estimated GFR > 60 Random Glucose 98 (60-115) mg/dL Lactic Acid 0.8 (0.5-2.0) mmol/L Uric Acid 3.3 L (3.4-7.0) mg/dL Calcium 9.6 (8.4-10.2) mg/dL Magnesium 2.0 (1.6-2.6) mg/dL Total Bilirubin 1.5 H (0.0-1.0) mg/dL AST 21 (5-37) U/L ALT 16 (0-40) U/L Alkaline Phosphatase 66 (39-117) U/L C-Reactive Protein 5.77 H (< or = 0.50) mg/dL Total Protein 6.9 (6.5-8.0) g/dL Albumin 4.3 (3.5-5.0) g/dL Independent Interpretation I performed an independent interpretation of an: Plain X-Ray Radiology Impression Discussion of test interpretation with radiology: I have reviewed the radiologist's reading. Independent Historian Clinical information obtained from an independent historian. History obtained from or confirmed by: Other (Patient) Critical Care Time Critical Care Time Critical Care Time: Yes Total Critical Care Time: 60 Attestation: Hypokalemia potassium 2.3. Oral potassium 40 ordered. To IV potassium 10 mLeq ordered. Patient is placed on monitor. Case presents to hospitalist for admission Discharge Plan Discharge Clinical Impression: Acute hypokalemia, Hand swelling Patient Disposition: Admitted As Inpatient
[2024-12-29] MEDS: Ketorolac Tromethamine 30 MG/ML VIAL IVPUSH (12:56)
[2024-12-29 13:01] LABS: MANUAL DIFF FLAG NO
[2024-12-29 13:02] LABS: Basophils Percent Auto 0.4 % (0-2); Eosinophils Absolute Auto 0.1 X10*3/uL (0.0-0.4); Hematocrit 35.4 % (42.0-52.0); Hemoglobin 13.1 g/dl (14.0-18.0); Imm Gran Abs Auto 0.03 X10*3/uL (0.00-0.03); Imm Gran Pct Auto 0.4 % (0.0-0.4); Lymphocytes Absolute Auto 1.4 X10*3/uL (1.2-4.9); Lymphocytes Percent Auto 16.7 % (20-40); Mean Corpuscular Hemoglobin 31.8 pg (27.0-33.0); Mean Corpuscular Volume 85.9 fL (80.0-98.0); Mean Platelet Volume 9.1 fL (9.4-12.4); Monocytes Absolute Auto 0.5 X10*3/uL (0.1-1.2); Monocytes Percent Auto 6.5 % (2-11); Neutrophils Absolute Auto 6.2 x10*3/uL (2.0-8.3); Platelet Count 150 X10*3/uL (160-400); Red Blood Count 4.12 X10*6/uL (4.60-5.80); Red Cell Distribution Width 13.9 % (11.0-16.0); White Blood Count 8.3 X10*3/uL (4.8-10.8)
[2024-12-29 13:17] LABS: INTERNATIONAL NORM RATIO 1.2 (0.9-1.1); Prothrombin Time 13.3 SEC (10.9-12.4)
[2024-12-29 13:19] LABS: Lactic Acid 0.8 mmol/L (0.5-2.0)
[2024-12-29 13:19] LABS: Partial Thromboplastin Time 36.6 SEC (26.0-36.8)
[2024-12-29 13:25] LABS: Alanine Aminotransferase 16 U/L (0-40); Albumin Level 4.3 g/dL (3.5-5.0); Alkaline Phosphatase 66 U/L (39-117); Anion Gap 11 (12-20); Aspartate Amino Transferase 21 U/L (5-37); Bilirubin Total 1.5 mg/dL (0.0-1.0); Blood Urea Nitrogen 14 mg/dL (9-16); C Reactive Protein 5.77 mg/dL (< or = 0.50); Calcium 9.6 mg/dL (8.4-10.2); Carbon Dioxide 31 mmol/L (22-29); Chloride 103 mmol/L (96-108); Creatinine Clr Calc Pharmacy 75.6; Estimated Glomerular Filt Rate > 60; Glucose Random 98 mg/dL (60-115); Potassium 2.3 mmol/L (3.3-5.1); Sodium 143 mmol/L (135-145); Total Protein 6.9 g/dL (6.5-8.0)
[2024-12-29 13:41] LABS: Erythrocyte Sedimentation Rate 25 MM/HR (0-15)
[2024-12-29] MEDS: Potassium Chloride Packet 20 MEQ PACKET 40 MEQ PO ×3 (13:41→18:47)
[2024-12-29 13:52] LABS: Uric Acid 3.3 mg/dL (3.4-7.0)
[2024-12-29 14:00] VITALS: BP 156/88; PULSE 88; RESP 14; TEMP 36.7; O2SAT 100
[2024-12-29] MEDS: Potassium Chloride/H20 10 MEQ/100 ML PIGGYBACK 100 MEQ IV ×4 (14:04→18:52)
[2024-12-29 16:08] VITALS: BP 139/78; PULSE 69; RESP 20; TEMP 37; O2SAT 97
[2024-12-29 16:34] LABS: Potassium 2.9 mmol/L (3.3-5.1)
--- NOTE | 2024-12-29 16:47 | PM.IMHP ---
History of Present Illness Date of Service: 12/29/24 Chief Complaint: Hand swelling, low potassium A 64 years old male with PMH of prostate CA post radiation therapy on Abiraterone, HLD who presents to the hospital with left had swelling and low potassium level. The patient reports increasing pain and swelling in left hand over the last 3-4 days. No reported trauma, fever, chills, insect bite. having difficulties making fist and moving fingers. In ED found to have elevated CRP and ESR. Low potassium level of 2.3 did not resolved by IV and PO supplement,. Will be admitted for close monitoring and treatment. Review of Systems Review of Systems: No fever, chills or weakness No chest pain, palpitation No shortness of breath or coughing No abdominal pain, nausea or vomiting No urinary symptoms left UE swelling and weakness PMFSH Medical History Prostate cancer Social History Do you presently have visiting nurse or other home services: No Patient Tobacco Use Status: Never used Tobacco Smoked in Last 30 Days: No Second Hand Smoke Exposure: No Use of substances other than those prescribed or required for medical reasons: No Advance Directives: No Advance Directives Information Provided: Yes service: No Meds Allergies Allergy/AdvReac Type Severity Reaction Status Date / Time No Known Allergies Allergy Verified 12/29/24 10:35 [No Known Allergies*] Active Medications: Current Medications Potassium Chloride (Potassium Chloride/H20) 10 meq in 100 mls @ 100 mls/hr IV Q1H IGNACIO Stop: 12/29/24 18:44 Potassium Chloride (Potassium Chloride Packet 20 Meq Packet) 40 meq PO Q2H IGNACIO Stop: 12/29/24 18:46 Home Medications ?Medication ?Instructions ?Recorded ?Confirmed ?Last Taken ?Type abiraterone 250 mg tablet 1,000 mg PO BEDTIME 12/01/24 12/01/24 11/30/24 History pravastatin 40 mg tablet 40 mg PO BEDTIME 12/01/24 12/01/24 11/30/24 History Physical Exam Vital Signs and Narrative: Vital Signs: Last Vital Signs Temp 98.6 F 12/29/24 16:08 Pulse 69 12/29/24 16:08 Resp 20 12/29/24 16:08 BP 139/78 12/29/24 16:08 Pulse Ox 97 12/29/24 16:08 O2 Del Method Room Air 12/29/24 16:08 BMI result Body Mass Index 24.5 Const: Other: Constitutional : Awake, interactive, not in distress Neck : Normal inspection, Supple Cardiovascular : RRR, no JVP, no lower extremity edema Respiratory : good bilateral air entry, no crackles, wheezes or rhonchi Gastrointestinal: soft, lax, Normal bowel sounds, Non tender Skin : Warm, Dry, left hand swollen but able to grap cup, no erythema or drainage noted Neurological : Alert & oriented x3, No focal deficit\ Results Labs 12/29/24 12:54 12/29/24 16:12 Labs: Laboratory Results - last 24 hr 12/29/24 12/29/24 12:54 13:02 MCV 85.9 MCH 31.8 MCHC 37.0 H RDW 13.9 Plt Count 150 L MPV 9.1 L Immature Gran % (Auto) 0.4 Neut % (Auto) 75.0 H Lymph % (Auto) 16.7 L [place] % (Auto) 6.5 Eos % (Auto) 1.0 Baso % (Auto) 0.4 Lymph # (Auto) 1.4 [place] # (Auto) 0.5 Eos # (Auto) 0.1 Baso # (Auto) 0.0 Abs Immat Gran (auto) 0.03 Absolute Neuts (auto) 6.2 Absolute Nucleated RBC 0.000 Nucleated RBC % (auto) 0.0 ESR 25 H PT 13.3 H INR 1.2 H APTT 36.6 Anion Gap 11 L Estim Creat Clear Calc 75.6 Estimated GFR > 60 Random Glucose 98 Lactic Acid 0.8 Uric Acid 3.3 L Calcium 9.6 Total Bilirubin 1.5 H AST 21 ALT 16 Alkaline Phosphatase 66 C-Reactive Protein 5.77 H Total Protein 6.9 Albumin 4.3 Imaging Radiologist's Impressions: Impressions Hand X-Ray 12/29/24 10:45 IMPRESSION: Degenerative changes of the left hand as described. Soft tissue swelling at the PIP joint of the middle finger. Electronically signed by: Stefan Waddell MD 12/29/2024 10:59 AM EDT Venous Duplex 12/29/24 13:12 IMPRESSION: No evidence of deep venous thrombosis involving the left upper extremity. Electronically signed by: Familia Knight MD 12/29/2024 01:46 PM EDT RP Assessment and Plan (1) Acute hypokalemia: Status: Acute (2) Hand swelling: Status: Acute Plan A 64 years old male with PMH of prostate CA post radiation therapy on Abiraterone, HLD who presents to the hospital with left had swelling and low potassium level. Acute hypokalemia did not improved with PO and IV replacement in ED check Mg give more K PO and IV follow BMP Left hand swelling inflammatory vs infection no clear source or signs of infection can try Ibuprofen and prednisone taper Monitor response HTN Continue Amlodipine and Lisinoprol HLD Statin Pending med rec. DVT PPx Lovenox Quality Stroke Does the patient have a stroke diagnosis?: No VTE Prior VTE?: No VTE Risk Level:: Medical - moderate - high VTE Device Contraindication: Treatment Not Indicated VTE Drug Contraindication: N/A - Med Ordered
[2024-12-29] MEDS: Ibuprofen 400 MG TABLET PO (17:40)
--- NOTE | 2024-12-29 18:29 | PC.NURSE ---
Accidentally unedited the MAR dose, charted medication.
[2024-12-29 18:36] VITALS: BP 156/89; PULSE 80; RESP 15; TEMP 36.9; O2SAT 97
--- NOTE | 2024-12-29 19:57 | PHA.MEDREC ---
Pharmacy Consult ? Medication Reconciliation Pharmacy has completed the medication reconciliation. Pt states he no longer takes mesalamine or amlodipine
[2024-12-29 20:32] VITALS: BP 162/95; PULSE 72; RESP 18; TEMP 36.4; O2SAT 97
[2024-12-29] MEDS: 0.9 % Sodium Chloride Flush 3 ML SYRINGE IVFLUSH (21:13)
[2024-12-30 03:44] VITALS: BP 125/75; PULSE 68; RESP 18; TEMP 36.4; O2SAT 96
[2024-12-30 06:25] LABS: MANUAL DIFF FLAG NO
[2024-12-30 06:39] LABS: Basophils Percent Auto 0.2 % (0-2); Eosinophils Percent Auto 0.2 % (0-4); Hematocrit 33.2 % (42.0-52.0); Hemoglobin 11.6 g/dl (14.0-18.0); Imm Gran Abs Auto 0.04 X10*3/uL (0.00-0.03); Imm Gran Pct Auto 0.6 % (0.0-0.4); Lymphocytes Absolute Auto 1.3 X10*3/uL (1.2-4.9); Mean Corpuscular HGB Conc 34.9 g/dl (31.0-36.0); Mean Corpuscular Hemoglobin 31.2 pg (27.0-33.0); Mean Corpuscular Volume 89.2 fL (80.0-98.0); Mean Platelet Volume 9.6 fL (9.4-12.4); Monocytes Absolute Auto 0.5 X10*3/uL (0.1-1.2); Monocytes Percent Auto 7.2 % (2-11); Neutrophils Absolute Auto 4.5 x10*3/uL (2.0-8.3); Neutrophils Percent Auto 71.8 % (45-73); Platelet Count 159 X10*3/uL (160-400); Red Blood Count 3.72 X10*6/uL (4.60-5.80); Red Cell Distribution Width 13.7 % (11.0-16.0); White Blood Count 6.3 X10*3/uL (4.8-10.8)
[2024-12-30 07:23] VITALS: BP 142/82; PULSE 66; RESP 18; TEMP 36.7; O2SAT 97
[2024-12-30 07:27] LABS: Alanine Aminotransferase 7 U/L (0-40); Albumin Level 3.5 g/dL (3.5-5.0); Anion Gap 11 (12-20); Aspartate Amino Transferase 17 U/L (5-37); Bilirubin Total 0.6 mg/dL (0.0-1.0); Blood Urea Nitrogen 24 mg/dL (9-16); Calcium 8.9 mg/dL (8.4-10.2); Carbon Dioxide 26 mmol/L (22-29); Chloride 109 mmol/L (96-108); Creatinine Clr Calc Pharmacy 103.8; Estimated Glomerular Filt Rate > 60; Glucose Random 100 mg/dL (60-115); Potassium 2.9 mmol/L (3.3-5.1); Sodium 143 mmol/L (135-145); Total Protein 5.8 g/dL (6.5-8.0)
[2024-12-30] MEDS: predniSONE 20 MG TABLET 40 MG PO (07:54)
[2024-12-30] MEDS: Potassium Chloride Packet 20 MEQ PACKET 40 MEQ PO ×2 (07:54→09:37)
[2024-12-30] MEDS: Ibuprofen 400 MG TABLET PO ×2 (07:55→12:47)
[2024-12-30] MEDS: 0.9 % Sodium Chloride Flush 3 ML SYRINGE IVFLUSH (07:55)
[2024-12-30 08:42] LABS: Alkaline Phosphatase 54 U/L (39-117)
--- NOTE | 2024-12-30 11:00 | HO.WOUND ---
Wound consult: Initial Wound Consult: Initial 64yr old? admitted to [facility] on 12/29/24 - See progress notes and H&P for detailed history.? Wound consult placed for Left hand.? Patient agreeable to assessment and photo documentation.? Left hand intact no injury no wound noted. No topical recommendations needed at this time. Defer to providers for treatment and care.
[2024-12-30 12:50] LABS: Anion Gap 8 (12-20); Blood Urea Nitrogen 19 mg/dL (9-16); Carbon Dioxide 27 mmol/L (22-29); Chloride 110 mmol/L (96-108); Creatinine Clr Calc Pharmacy 106.8; Estimated Glomerular Filt Rate > 60; Glucose Random 131 mg/dL (60-115); Potassium 3.4 mmol/L (3.3-5.1); Sodium 142 mmol/L (135-145)
--- NOTE | 2024-12-30 13:09 | P.DS_ITS ---
DS: Providers Provider Date of Service: 12/30/24 Date of admission: 12/29/24 16:42 Date of discharge: 12/30/24 Primary care physician: Stefan Yuan DO Consults: 12/29/24 20:38 Consult to Wound Care Routine Reason for consultation: left hand cellulitis DS: Diagnosis Discharge Diagnosis (1) Acute hypokalemia: Status: Acute (2) Hand swelling: Status: Acute DS: Summary Hospital Course Hospital Course: Admission note HPI A 64 years old male with PMH of prostate CA post radiation therapy on Abiraterone, HLD who presents to the hospital with left had swelling and low potassium level. The patient reports increasing pain and swelling in left hand over the last 3-4 days. No reported trauma, fever, chills, insect bite. having difficulties making fist and moving fingers. In ED found to have elevated CRP and ESR. Low potassium level of 2.3 did not resolved by IV and PO supplement,. Will be admitted for close monitoring and treatment. Hospital course # Acute hypokalemia . Likely related to hormonal effect of Abiraterone. did not improved with PO and IV replacement in ED so he was admitted for more supplement. responded well as Potassium improved to 3.4. To be discharged on daily potassium supplement of 20 Meq. to repeat BMP next week and follow with PCP. # Left hand swelling with evidence of arthritis in XR of his hand. US negative for DVT. Likely osteoarthritis flare up improved with Ibuprofen and steroids as no clear source or signs of infection. To be discharged on short course of prednisone and to use Tylenol\Ibuprofen as needed for pain control. Discharge plan Take Tylenol and Ibuprofen as needed for pain Continue 3-5 more days of Prednisone, stop once swelling resolves Start Potassium supplement as long as you take Abiraterone Follow blood test next week with PCP Time Attestation Discharge Coordination Time (in mins): 28 Quality: Safe Use of Opioids Does Pt have an Active Cancer Diagnosis on the Problem List?: Yes Opioid Measure Date for [facility] Report: 11/30/24 Opioid Measure Time for [facility] Report: 13:13 Quality: Stroke Does the patient have a stroke diagnosis?: No Physical Exam Vital Signs: Vital Signs: Last Vital Signs Temp 98.1 F 12/30/24 07:23 Pulse 66 12/30/24 07:23 Resp 18 12/30/24 07:23 BP 142/82 H 12/30/24 07:23 Pulse Ox 97 12/30/24 07:23 O2 Del Method Room Air 12/30/24 07:23 BMI result Body Mass Index 24.5 Const: Other: Constitutional : Awake, interactive, not in distress Neck : Normal inspection, Supple Cardiovascular : RRR, no JVP, no lower extremity edema Respiratory : good bilateral air entry, no crackles, wheezes or rhonchi Gastrointestinal: soft, lax, Normal bowel sounds, Non tender Skin : Warm, Dry, left hand swelling resolving, improved range of motion, able to make a fist, no erythema or drainage noted Neurological : Alert & oriented x3, No focal deficit\ DS: Data Data Completed and Pending Labs on day of discharge: Laboratory Results - last 24 hr 12/29/24 12/29/24 12/29/24 12:54 13:02 16:12 WBC RBC Hgb Hct MCV MCH MCHC RDW Plt Count MPV Immature Gran % (Auto) Neut % (Auto) Lymph % (Auto) [place] % (Auto) Eos % (Auto) Baso % (Auto) Lymph # (Auto) [place] # (Auto) Eos # (Auto) Baso # (Auto) Abs Immat Gran (auto) Absolute Neuts (auto) Absolute Nucleated RBC Nucleated RBC % (auto) ESR 25 H PT 13.3 H INR 1.2 H APTT 36.6 Sodium 143 Potassium 2.3 L* D 2.9 L* D Chloride 103 Carbon Dioxide 31 H Anion Gap 11 L BUN 14 Creatinine 0.96 Estim Creat Clear Calc 75.6 Estimated GFR > 60 Random Glucose 98 Lactic Acid 0.8 Uric Acid 3.3 L Calcium 9.6 Magnesium 2.0 Total Bilirubin 1.5 H AST 21 ALT 16 Alkaline Phosphatase 66 C-Reactive Protein 5.77 H Total Protein 6.9 Albumin 4.3 12/30/24 12/30/24 05:45 12:14 WBC 6.3 RBC 3.72 L Hgb 11.6 L Hct 33.2 L MCV 89.2 MCH 31.2 MCHC 34.9 RDW 13.7 Plt Count 159 L MPV 9.6 Immature Gran % (Auto) 0.6 H Neut % (Auto) 71.8 Lymph % (Auto) 20.0 [place] % (Auto) 7.2 Eos % (Auto) 0.2 Baso % (Auto) 0.2 Lymph # (Auto) 1.3 [place] # (Auto) 0.5 Eos # (Auto) 0.0 Baso # (Auto) 0.0 Abs Immat Gran (auto) 0.04 H Absolute Neuts (auto) 4.5 Absolute Nucleated RBC 0.000 Nucleated RBC % (auto) 0.0 ESR PT INR APTT Sodium 143 142 Potassium 2.9 L* 3.4 Chloride 109 H 110 H Carbon Dioxide 26 27 Anion Gap 11 L 8 L BUN 24 H 19 H Creatinine 0.70 0.68 Estim Creat Clear Calc 103.8 106.8 Estimated GFR > 60 > 60 Random Glucose 100 131 H Lactic Acid Uric Acid Calcium 8.9 D 9.0 Magnesium Total Bilirubin 0.6 AST 17 ALT 7 Alkaline Phosphatase 54 C-Reactive Protein Total Protein 5.8 L Albumin 3.5 Imaging Chest x-ray: Radiologist's impression: ITS Impressions Hand X-Ray 12/29/24 10:45 IMPRESSION: Degenerative changes of the left hand as described. Soft tissue swelling at the PIP joint of the middle finger. Electronically signed by: Stefan Waddell MD 12/29/2024 10:59 AM EDT RP Venous Duplex 12/29/24 13:12 IMPRESSION: No evidence of deep venous thrombosis involving the left upper extremity. Electronically signed by: Familia Knight MD 12/29/2024 01:46 PM EDT RP Discharge Plan Discharge Anticipated Discharge Date/Time: 12/30/24 13:05 Patient Disposition: Home, Self-Care Discharge Diagnosis: Hand Swelling; Arthritis Low potassium level Referrals: Stefan Yuan DO [Primary Care Provider] - 1 Week Discharge Medications: New prednisone 20 mg Tablet 40 mg PO DAILY Qty: 10 0RF potassium chloride 20 mEq tablet extended release 20 meq PO DAILY Qty: 30 0RF Continued lisinopril 20 mg Tablet 20 mg PO BEDTIME pravastatin 40 mg tablet 40 mg PO BEDTIME abiraterone 250 mg tablet 1,000 mg PO BEDTIME Discharge Orders: Discharge Order (Routine); Ordered 12/30/24 Ordered By: Brandon Bonds Diet: Advance to usual diet Activity on Discharge: As tolerated Stand Alone Forms: Patient Portal Discharge page Print Language: Pashto Other Ambulatory Orders: Basic Metabolic Panel (Routine) Timeframe: 1 Week Facility: [facility] - Location: Laboratory Ordered By: Brandon Bonds Care Plan Goals: Take Tylenol and Ibuprofen as needed for pain Continue 3-5 more days of Prednisone, stop once swelling resolves Start Potassium supplement as long as you take Abiraterone Follow blood test next week with PCP Health Concerns: Arthritis flare up - overuse arthritis Low potassium Plan of Treatment: Potassium supplemnet short course Prednisone Assessment: as above
--- NOTE | 2024-12-30 14:46 | MHC.CM.PN ---
Patient dc'd home self care via private transport prior to CM assessment.
== END 2024-12-30 14:41 | disposition home or self-care (01) ==
LOC: HO.ED 11:53 → HO.EDOVER 17:30 → HO.S3 19:07
PROVIDERS: Physician Assistant; Admitting Provider Student in an Organized Health Care Education/Training Program; Emergency Provider Emergency Medicine; PCP Family Medicine; Visit Provider Student in an Organized Health Care Education/Training Program
DX: E87.6 Hypokalemia (principal); M19.042 Primary osteoarthritis, left hand; M79.89 Other specified soft tissue disorders; C61 Malignant neoplasm of prostate; E78.5 Hyperlipidemia, unspecified; I10 Essential (primary) hypertension; Z92.3 Personal history of irradiation; Z79.899 Other long term (current) drug therapy
CPT/HCPCS: 36415; 73130; 80048; 80053; 83605; 83735; 84132; 84550; 85025; 85610; 85652; 85730; 86140; 87040; 93971; 99221; 99285; J1885; J2919; J3480

== ENCOUNTER → 2024-12-29 10:45 | Outpatient (BNV) | payer OTHER, SELFPAY | PROVIDERS: Emergency Provider Emergency Medicine; PCP Family Medicine; Visit Provider Radiology Diagnostic Radiology | DX: R22.32 Localized swelling, mass and lump, left upper limb (principal); M19.042 Primary osteoarthritis, left hand; M79.89 Other specified soft tissue disorders | CPT/HCPCS: 73130; 93971 ==

== ENCOUNTER → 2024-12-29 16:42 | Outpatient (BNV) | payer OTHER, SELFPAY | PROVIDERS: Admitting Provider Student in an Organized Health Care Education/Training Program; Emergency Provider Emergency Medicine; PCP Family Medicine; Visit Provider Student in an Organized Health Care Education/Training Program | DX: E87.6 Hypokalemia (principal); M79.89 Other specified soft tissue disorders | CPT/HCPCS: 99223; 99238 ==

== ENCOUNTER 2025-01-05 09:38 | Outpatient (REF) | payer OTHER, SELFPAY ==
--- OUTSIDE RECORDS SUMMARY | 2025-01-05 10:47 | XMS_ITS | Continuity of Care Document ---
Author Organization [facility] Address [address] [place] [address]- Care Team Providers Care Massage Therapy Instructor Name Role Phone Wes [facility], Juliana Primary Care Physician Encounter [facility] Date(s): 12/01/24 - 12/31/24 [facility] Sonido Humphreyley Adult [address] [place] [address]- Encounter Type: Triage Allergies, Adverse Reactions, Alerts No Known Allergies Immunizations Given and Recorded Vaccine Date Status Refusal Reason pneumococcal 20-valent conjugate vaccine 1 03/15/23 Given tetanus-diphtheria toxoids (Td) 2 02/27/21 Given SARS-CoV-2 (COVID-19) Ad26 vaccine 11/08/20 Record ed Influenza Virus Vaccine (oldterm) 3 06/25/13 Given Tet/diphth/pertussis, acel (oldterm) 12/20/10 Give n 1Result Comment: [id number] 2Result Comment: [id number] 3Admin Note: refused Problem List Condition Confirmation [...] Tubular adenoma colon x 2 Confirmed Active Social History Social History Type Response Smoking Status Former smoker, quit more than 30 days ago; Tobacco use times per day: quit 2013 1/2ppd for 3 yrs; Total pack years: 1.5; entered on: 04/07/24 Sex Sex Representation Male (finding) Patient Care team information Care Team Personnel Name: Juliana Harvey MD Position: [facility] Physician - Primary Care Member Role: PCP Address: [address] [place] [id number] Telecom: Care Team Related Persons Name: ZACARIAS BYRNE Name: LAMONTE EASON Insurance Providers Guarantor name: CINDY EASON Health Plan Information #: 1 [facility] Member Number: NA Policy Number: NA Group Number: NA
[2025-01-05 11:42] LABS: Anion Gap 13 (12-20); Blood Urea Nitrogen 24 mg/dL (9-16); Calcium 9.1 mg/dL (8.4-10.2); Carbon Dioxide 25 mmol/L (22-29); Chloride 107 mmol/L (96-108); Estimated Glomerular Filt Rate > 60; Glucose Random 110 mg/dL (60-115); Sodium 142 mmol/L (135-145)
== END 2025-01-05 09:39 | disposition home or self-care (01) ==
LOC: HO.LAB 09:38
PROVIDERS: Visit Provider Student in an Organized Health Care Education/Training Program
DX: E87.6 Hypokalemia (principal)
CPT/HCPCS: 36415; 80048